=== PATIENT | female | born 1965 | race Caucasian/White ===

== ENCOUNTER 2016-10-07 12:20 | Outpatient (CLI) ==
[2012-12-07 17:35] VITALS: BP 132/86; TEMP 97.8
[2013-02-15 06:15] VITALS: BMI 24.8
[2016-10-07 12:43] LABS: BASOPHILS % (AUTO) 0.3 % (0.0-3.0); EOSINOPHILS # (AUTO) 0.4 K/ul (0.0-0.7); EOSINOPHILS % (AUTO) 3.9 % (0.0-7.0); HEMATOCRIT 43.5 % (37.0-47.0); HEMOGLOBIN 14.8 g/dl (12.0-16.0); IMMATURE GRANULOCYTE % (AUTO) 0.3 % (0.0-5.0); LYMPHOCYTES % (AUTO) 18.8 (10.0-50.0); MEAN CORPUSCULAR HEMOGLOBIN 28.1 pg (27.0-31.0); MEAN CORPUSCULAR VOLUME 82.7 fl (81.0-99.0); MONOCYTES # (AUTO) 0.7 K/uL (0.4-2.0); MONOCYTES % (AUTO) 6.3 (0-10); NEUTROPHILS # (AUTO) 7.4 K/ul (2.0-6.9); NEUTROPHILS % (AUTO) 70.4; PLATELET COUNT 300 10^3/uL (140-440); RED BLOOD COUNT 5.26 10^6/ul (4.20-5.40); WHITE BLOOD COUNT 10.56 K/ul (4.6-10.2)
[2016-10-07 13:03] LABS: ALBUMIN 4.5 g/dL (3.4-5.0); ALBUMIN/GLOBULIN RATIO 1.41; ANION GAP 14.1; BILIRUBIN,TOTAL 0.5 mg/dL (0.00-1.20); BUN/CREATININE RATIO 12.79; CREATININE 0.86 mg/dL (0.60-1.30); POTASSIUM 4.1 mmol/L (3.5-5.10); TOTAL PROTEIN 7.7 g/dL (6.4-8.2)
== END 2016-10-07 12:21 | disposition home or self-care (01) ==
LOC: LAB 12:20
PROVIDERS: ATTEND Nurse Practitioner Family
DX: R10.11 Right upper quadrant pain (principal); R19.7 Diarrhea, unspecified
CPT/HCPCS: 36415; 80053; 80074; 82150; 83690; 85025

== ENCOUNTER 2016-10-08 09:18 | Outpatient (CLI) ==
[2012-12-07 17:35] VITALS: BP 132/86; TEMP 97.8
[2013-02-15 06:15] VITALS: BMI 24.8
--- NOTE | 2016-10-08 09:50 | US ---
EXAM: Right upper quadrant abdominal ultrasound. History: Right upper quadrant abdominal pain. Comparison: CT abdomen pelvis 02/15/2013 Technique: Multiple sonographic images through the abdomen were obtained. Color duplex Doppler was used to interrogate vascular flow. Findings: The visualized pancreas demonstrates no gross abnormality. No abdominal ascites. There is antegrad e flow within the main portal vein. The liver is echogenic compared to the adjacent right renal cor alejandra. No gallbladder wall thickening. 4 mm gallbladder wall polyp versus sludge ball. Common bile duct is borderline dilated measuring 0.7 cm. Limited visualization of the right kidney demonstrates no evidence for hydronephrosis. Impression: 1. Small gallbladder wall polyp versus sludge ball. 2. Borderline dilated common bile duct. 3. Probable fatty liver
== END 2016-10-08 09:19 | disposition home or self-care (01) ==
LOC: RAD 09:18
PROVIDERS: ATTEND Nurse Practitioner Family
DX: R10.11 Right upper quadrant pain (principal); R19.7 Diarrhea, unspecified

== ENCOUNTER 2016-10-10 07:39 | Outpatient (CLI) ==
[2012-12-07 17:35] VITALS: BP 132/86; TEMP 97.8
[2013-02-15 06:15] VITALS: BMI 24.8
--- NOTE | 2016-10-10 10:42 | NM ---
EXAM: Hepatobiliary imaging HISTORY: Right upper quadrant pain COMPARISON: Right upper quadrant abdominal ultrasound on 10/08/2016 showed small gallbladder wall po lyp versus sludge ball. Borderline dilated common bile duct. TECHNIQUE: Patient was injected 5.4 mCi of technetium 99m Choletec intravenously. Multiple anterior scintigraphic images of the right upper quadrant region of the abdomen were obtained up to 1 hour i nterval. The patient was infused 1.5 mcg of cholecystokinin intravenously. Gallbladder ejection fr action was calculated. FINDINGS: There is normal visualization of liver, gallbladder, bile duct and small bowel loops. Gal lbladder ejection fraction is 12%. IMPRESSION: Findings are compatible with chronic acalculous cholecystitis or biliary dyskinesia.
== END 2016-10-10 07:40 | disposition home or self-care (01) ==
LOC: RAD 07:39
PROVIDERS: ATTEND Nurse Practitioner Family
DX: R10.11 Right upper quadrant pain (principal); R19.7 Diarrhea, unspecified

== ENCOUNTER 2016-10-23 03:28 | Emergency (ER) ==
--- NOTE | 2016-10-23 03:39 | ED.PDOC ---
General ED Provider: Dr. MARIO SPENCER Chief Complaint: Abdominal Pain Stated Complaint: Patient had GB surgery 3 days ago, today she woke with severe pain, Time Seen by Physician: 03:36 Nursing and Triage Documentation Reviewed and Agree: Yes GI Complaint Exam - Abdominal Pain Complaint/Exam Onset: Gradual Symptoms Are: Still present Timing: Constant Initial Severity: Severe Current Severity: Severe Location of Pain: RUQ Radiates To: Reports: Back, Flank Character: Reports: Dull, Aching, Throbbing Aggravating: Reports: Movement Alleviating: Reports: None Associated Signs and Symptoms: Reports: Nausea. Denies: Diaphoresis, Fever, Cough, Chest pain, Dizziness, Back pain, Constipation, Blood in stool, Dysuria, Urinary frequency, Decreased urine output, Decreased appetite, Vaginal bleeding , Vaginal discharge, Vomiting, Diarrhea, Sore throat, Decreased activity AAA Risk Factors: Reports: None Cardiac Risk Factors: Reports: None Ectopic Risk Factors: Reports: None Ovarian Torsion Risk Factors: Reports: None Surgical Obstruction Risk Factors: Reports: None Related Surgical History: Reports: Cholecystectomy Patient Rh Status: Unknown Abdominal Findings: Present: Rebound tenderness, Peritoneal signs. Absent: Pulsatile mass, Abdominal distention, Unequal femoral pulses Differential Diagnoses: GB, Other (post surgical pain) Review of Systems - Review Of Systems Constitutional: Reports: Malaise, Weakness Eyes: Reports: No symptoms Ears, Nose, Mouth, Throat: Reports: No symptoms Respiratory: Reports: No symptoms Cardiac: Reports: No symptoms GI: Reports: Abdominal pain : Reports: No symptoms Musculoskeletal: Reports: No symptoms Skin: Reports: No symptoms Neurological: Reports: No symptoms Endocrine: Reports: No symptoms Hematologic/Lymphatic: Reports: No symptoms All Other Systems: Reviewed and Negative Past Medical History - Past Medical History Previously Healthy: Yes Endocrine: Reports: None Cardiovascular: Reports: None Respiratory: Reports: None Hematological: Reports: None Gastrointestinal: Reports: None Genitourinary: Reports: None Neuro/Psych: Reports: None Musculoskeletal: Reports: None Cancer: Reports: None - Surgical History General Surgical History: Reports: Hysterectomy - Family History Family History: Reports: None - Social History Hx Substance Use: No Lives: With family Physical Exam - Physical Exam Appearance: Ill-appearing, Well-nourished Ill-appearing: Moderate Pain Distress: Severe Eyes: DENNIS, EOMI, Conjunctiva clear ENT: Ears normal, Nose normal, Oropharynx normal Respiratory: Airway patent, Breath sounds clear, Breath sounds equal, Respirations nonlabored Cardiovascular: RRR, Pulses normal, No rub, No murmur GI/: Soft, Tender Musculoskeletal: Normal strength, ROM intact, No edema, No calf tenderness Skin: Warm, Dry, Normal color Neurological: Sensation intact, Motor intact, Reflexes intact, Cranial nerves intact, Alert, Oriented Psychiatric: Affect appropriate, Mood appropriate Interpretation - Radiology Interpretation Radiology Interpretation By: Radiologist Radiology Results: Positive Critical Care Note - Critical Care Note Total Time (mins): 0 Course - Course Hematology/Chemistry: 10/23/16 03:58 10/23/16 03:58 Orders, Labs, Meds: Lab Review 10/23/16 03:58 WBC 15.60 H RBC 4.35 Hgb 12.3 Hct 36.3 L MCV 83.4 MCH 28.3 MCHC 33.9 RDW Coeff of Michelle 13.4 Plt Count 273 Immature Gran % (Auto) 0.6 Neut % (Auto) 81.6 Lymph % (Auto) 9.7 L Patrick % (Auto) 7.0 Eos % (Auto) 0.7 Baso % (Auto) 0.4 Immature Gran # (Auto) 0.1 Neut # 12.7 H Lymph # 1.5 Patrick # 1.1 Eos # 0.1 Baso # 0.1 Sodium 139 Potassium 3.4 L Chloride 103 Carbon Dioxide 24 Anion Gap 15.4 BUN 14 Creatinine 0.87 Estimated GFR (MDRD) 69.00 BUN/Creatinine Ratio 16.09 Glucose 130 H Calcium 9.2 Total Bilirubin 0.91 AST 21 ALT 19 Alkaline Phosphatase 61 Total Protein 6.7 Albumin 4.1 Globulin 2.6 Albumin/Globulin Ratio 1.58 Orders Category Date Time Status ED IV/MEDIPORT/POWERPORT .ONCE EMERGENCY 10/23/16 03:35 Active CBC W/ AUTO DIFF Stat LAB 10/23/16 03:58 Completed COMPREHENSIVE METABOLIC PANEL Stat LAB 10/23/16 03:58 Completed 0.9 % Sodium Chloride [Saline Flush] MEDS 10/23/16 03:35 Ordered 1 syr IVF PRN PRN Hydromorphone HCl/Pf [Dilaudid 2 mg/ml Syringe] MEDS 10/23/16 03:35 Discontinued 2 mg IVP ONCE STA Magnesium Citrate [Citrate of Magnesia] MEDS 10/23/16 04:34 Discontinued 10 oz PO ONCE STA Ondansetron HCl/Pf [Zofran 4 mg/2 ml] MEDS 10/23/16 03:35 Discontinued 4 mg IVP ONCE STA Sodium Chloride 0.9% [Sodium Chloride] 500 ml MEDS 10/23/16 03:35 Active IV 100 mls/hr CT ABDOMEN/PELVIS WO CONTRAST Stat RADS 10/23/16 03:35 Completed Medications Generic Name Dose Route Start Last Admin Trade Name Freq PRN Reason Stop Dose Admin Sodium Chloride 500 mls @ 100 mls/hr 10/23/16 03:35 10/23/16 04:10 Sodium Chloride IV 10/23/16 08:34 100 mls/hr .Q5H STA Administration Sodium Chloride 1 syr 10/23/16 03:35 Saline Flush IVF PRN PRN To flush IV Discontinued Medications Generic Name Dose Route Start Last Admin Trade Name Freq PRN Reason Stop Dose Admin Hydromorphone HCl 2 mg 10/23/16 03:35 10/23/16 03:43 Dilaudid 2 Mg/Ml Syringe IVP 10/23/16 03:36 2 mg ONCE STA Administration Magnesium Citrate 10 oz 10/23/16 04:34 10/23/16 04:47 Citrate Of Magnesia PO 10/23/16 04:35 10 oz ONCE STA Administration Ondansetron HCl 4 mg 10/23/16 03:35 10/23/16 03:44 Zofran 4 Mg/2 Ml IVP 10/23/16 03:36 4 mg ONCE STA Administration Vital Signs: Temp Pulse Resp BP Pulse Ox 10/23/16 03:30 98 F 82 64 H 115/90 100 Departure - Departure Time of Disposition: 04:33 Disposition: HOME SELF-CARE Discharge Problem: Abdominal pain, History of surgery for acute abdominal pain Instructions: Constipation (ED) Condition: Stable Pt referred to PMD for follow-up: Yes Additional Instructions: Increase hydration miralax high fibre diet. f/u with surgeon in 2-[address] is shown to and discussed the results in detail. Prescriptions: Polyethylene Glycol 3350 [Miralax] 17 gm PO DAILY #30 powd.pack Allergies/Adverse Reactions: Allergies No Known Allergies Allergy (Verified 10/23/16 03:40) Home Medications: Ambulatory Orders Estradiol 0.5 mg PO d 10/07/16 Hydrocodone Bit/Acetaminophen [Paige 5-325] 1 each PO Q6HR PRN 10/23/16 Ondansetron HCl [Zofran Tab] 4 mg PO DIRECTED PRN 10/23/16 Polyethylene Glycol 3350 [Miralax] 17 gm PO DAILY #30 powd.pack 10/23/16 Disposition Discussed With: Patient, Family
[2016-10-23 03:40] VITALS: BP 115/90; TEMP 98; BMI 26.4
[2016-10-23] MEDS: DILAUDID 2 MG/ML SYRINGE IVP STA (03:43)
[2016-10-23] MEDS: ZOFRAN 4 MG/2 ML IVP STA (03:44)
[2016-10-23 03:59] LABS: BASOPHILS # (AUTO) 0.1 K/uL (0-0.2); BASOPHILS % (AUTO) 0.4 % (0.0-3.0); EOSINOPHILS # (AUTO) 0.1 K/ul (0.0-0.7); EOSINOPHILS % (AUTO) 0.7 % (0.0-7.0); HEMATOCRIT 36.3 % (37.0-47.0); HEMOGLOBIN 12.3 g/dl (12.0-16.0); IMMATURE GRANULOCYTE % (AUTO) 0.6 % (0.0-5.0); LYMPHOCYTES # (AUTO) 1.5 K/uL (0.60-3.4); LYMPHOCYTES % (AUTO) 9.7 (10.0-50.0); MEAN CORPUSCULAR HEMOGLOBIN 28.3 pg (27.0-31.0); MEAN CORPUSCULAR HGB CONC 33.9 (31.8-35.4); MEAN CORPUSCULAR VOLUME 83.4 fl (81.0-99.0); MONOCYTES # (AUTO) 1.1 K/uL (0.4-2.0); NEUTROPHILS # (AUTO) 12.7 K/ul (2.0-6.9); NEUTROPHILS % (AUTO) 81.6; PLATELET COUNT 273 10^3/uL (140-440); RED BLOOD COUNT 4.35 10^6/ul (4.20-5.40)
[2016-10-23] MEDS: SODIUM CHLORIDE 500 ML IV STA (04:10)
[2016-10-23 04:18] LABS: ALBUMIN 4.1 g/dL (3.4-5.0); ALBUMIN/GLOBULIN RATIO 1.58; ANION GAP 15.4; BILIRUBIN,TOTAL 0.91 mg/dL (0.00-1.20); BUN/CREATININE RATIO 16.09; CALCIUM 9.2 mg/dL (8.2-10.2); CREATININE 0.87 mg/dL (0.60-1.30); POTASSIUM 3.4 mmol/L (3.5-5.10); TOTAL PROTEIN 6.7 g/dL (6.4-8.2)
--- NOTE | 2016-10-23 04:40 | CT ---
EXAM: CT abdomen pelvis without intravenous contrast 10/23/2016. Sagittal and coronal reformatted images obtained HISTORY: Abdominal pain. Recent cholecystectomy COMPARISON: 02/15/2013 FINDINGS: The liver shows no acute abnormality. Surgical clips are present in the gallbladder juliette a. There is a mottled area of high density and gas with surrounding edema within the gallbladder f tere. The area of high density/gas on axial series image 51 measures approximately 3.5 x 2.3 cm aaron meter. Differential considerations include postoperative hematoma as well as possible phlegmon. Co rrelate clinically to exclude postoperative packing material. There is no drainable abscess. The adrenal glands, kidneys, spleen and pancreas show no acute abnormality. There is no evidence of bowel obstruction. Normal appendix. Unremarkable urinary bladder. Small qu antity of free fluid within the pelvis. Colonic diverticulosis without evidence of diverticulitis. IMPRESSION: 1. Status post cholecystectomy. Within the gallbladder fossa there is no ovoid area of high densit y with free air. There is surrounding edema. Differential considerations include postoperative hem atoma as well as possible phlegmon. Correlate to exclude packing material. No drainable abscess. 2. No urinary or bowel obstruction. Normal appendix 3. Small quantity of free fluid the pelvis. 4. Diverticulosis without diverticulitis.
[2016-10-23] MEDS: CITRATE OF MAGNESIA PO STA (04:47)
== END 2016-10-23 05:35 | disposition home or self-care (01) ==
LOC: ED 03:28
DX: R10.11 Right upper quadrant pain (principal); K59.00 Constipation, unspecified; Z98.890 Other specified postprocedural states
CPT/HCPCS: 36415; 80053; 85025; 96361; 96375; 99284